=== PATIENT | female | born 1955 | race Caucasian/White ===

== ENCOUNTER → 2016-06-03 | Outpatient (CLI) | payer BC ==
[2016-06-03 09:23] LABS: Basophils % (A) 0 %; CH 31.2; CHCM 32.8; Eosinophils # (A) 0.2 k/uL (0-0.7); Eosinophils % (A) 2 %; HCT 50.4 % (34.0-46.0); HDW 2.11; HGB 16.2 gm/dL (11.4-16.0); Luc % (Auto) 3; Lymphocytes # (A) 2.4 k/uL (1.0-4.8); Lymphocytes % (A) 32 %; MCH 30.7 pg (25.0-35.0); MCHC 32.1 g/dL (31.0-37.0); MCV 95.7 fL (80.0-100.0); Mean Platelet Volume 8.3; Monocytes # (A) 0.4 k/uL (0-1.0); Monocytes % (A) 5 %; Neutrophils # (A) 4.4 k/uL (1.3-7.7); Neutrophils % (A) 58 %; RBC 5.27 m/uL (3.80-5.40); RDW 13.4 % (11.5-15.5); WBC 7.5 k/uL (3.8-10.6)
[2016-06-03 09:39] LABS: ALT 58 U/L (9-52); AST 35 U/L (14-36); Alkaline Phosphatase 93 U/L (38-126); Anion Gap 10 mmol/L; Blood Urea Nitrogen 13 mg/dL (7-17); Calcium 9.5 mg/dL (8.4-10.2); Carbon Dioxide 29 mmol/L (22-30); Chloride 105 mmol/L (98-107); Cholesterol 149 mg/dL (<200); Creatine Kinase 64 U/L (30-135); Glucose 91 mg/dL (74-99); HDL Cholesterol 53 mg/dL (40-60); Non-African American GFR(MDRD) >60 (>60 ml/min/1.73 sqM); Potassium 4.9 mmol/L (3.5-5.1); Sodium 144 mmol/L (137-145); Total Bilirubin 0.5 mg/dL (0.2-1.3); Total Protein 7.6 g/dL (6.3-8.2); Triglycerides 123 mg/dL (<150)
== END | disposition home or self-care (01) ==
LOC: LABWHC1 09:00
PROVIDERS: ATTEND Family Medicine
DX: E78.5 Hyperlipidemia, unspecified (principal)
CPT/HCPCS: 36415; 80053; 80061; 82550; 85025

== ENCOUNTER → 2016-08-16 | Outpatient (CLI) | payer BC ==
[2016-08-16 16:05] LABS: Appearance,Urine Clear (Clear); Bilirubin,Urine Negative (Negative); Glucose,Urine (UA) Negative (Negative); Ketones,Urine Negative (Negative); Leukocyte Esterase,Urine Negative (Negative); Nitrite,Urine Negative (Negative); PH, Urine 5.5 (5.0-8.0); Protein,Urine Negative (Negative); Specific Gravity,Urine 1.002 (1.001-1.035); UA Billing (MACRO vs. MICRO) CHEM; Urobilinogen,Urine <2.0 mg/dL (<2.0)
--- NOTE | 2016-08-16 19:14 | WWPN ---
DATE OF ADMISSION: 08/16/2016 CHIEF COMPLAINT: Vaginal pruritus which started about 2-1/2 weeks ago. HPI: This is a 60-year-old G2, P2 with an LMP of 1998. She is status post ELDON for uterine fibroids. She states she developed vaginal pruritus about 2-1/2 weeks ago. This seems to correspond with sexual activity after her used an erectile dysfunction medication for the first time. She states he was larger and firmer than in the past. She developed vaginal pruritus and possibly slight discharge. She used [id number] Monistat suppository about 2 weeks ago. She states she did have symptomatic improvement, but just a few days ago, she again developed some vaginal pruritus and slight odor. She has also noticed that when she urinates it feels like something is slightly blocking the opening. She denies urinary frequency. She has not used antibiotics recently. PAST MEDICAL HISTORY: Significant for Crohn's disease, elevated cholesterol, anxiety, and osteopenia. History of breast cancer, status post lumpectomy and radiation therapy in 2016. REVIEW OF SYSTEMS: She denies fever, respiratory, cardiac, or GI problems. She has had some low back discomfort recently, but feels achy. She has also had some tooth aching recently as well. PHYSICAL EXAM: Blood pressure 96/50. Height 5 feet inches. Weight 118 pounds. Temperature 98.0, pulse 73. This a well-developed, well-nourished white female who is alert and oriented x3 in no acute distress. ABDOMEN: Soft, nontender, without palpable masses. PELVIC EXAM: External genitalia reveals mild to moderate atrophy without lesions. Vagina reveals moderate atrophy without lesions. There is no unusual discharge noted. The vaginal tissue appears slightly inflamed generally consistent with atrophic vaginitis. No significant odor is noted. Bimanual exam is negative for mass or tenderness. There is no significant cystocele and no evidence of prolapse. There is no evidence of any palpable bladder masses. Saline and SOURAV wet gabriel were negative for trichomonas, hyphae and ( ) cells. IMPRESSION: 1. 60-year-old menopausal female, status post total abdominal hysterectomy for benign reasons. 2. Atrophic vaginitis. 3. Possible previous yeast infection that was self-treated with no evidence of Beata vaginitis at this time. 4. Slight urinary symptoms consisting of sensation that the urine is slightly blocked. 5. Vaginal symptoms may possibly be secondary to change in sexual activity after her started Cialis for erectile dysfunction. 6. History of breast cancer. PLAN: 1. We have discussed the situation and the findings. At this time I do not feel there is any need to further treat for yeast infection or bacterial vaginosis since there was no signs of this at this time. 2. UA and C&S has been obtained. 3. We have discussed atrophic vaginitis and possible treatments. Because of her history of recent breast cancer, I do not feel that she would be a good candidate for any estrogen products. At this I recommended vaginal moisturizer and to use lubrication with sexual activity which she has not used in the past. 4. She will return for her annual examination in the upcoming year. 5. She will follow up with Dr. Locke for her breast cancer and she states she has been doing mammograms through him. Total time spent with the patient 30 minutes.
== END | disposition home or self-care (01) ==
LOC: WWCWWP 12:31
PROVIDERS: ATTEND Obstetrics & Gynecology
DX: R30.0 Dysuria (principal)
CPT/HCPCS: 81003; 87086

== ENCOUNTER → 2016-08-17 | Outpatient (CLI) | payer BC ==
[2016-08-17 16:33] LABS: Basophils % (A) 0 %; CH 31.2; CHCM 32.7; Eosinophils # (A) 0.1 k/uL (0-0.7); Eosinophils % (A) 1 %; HCT 44.4 % (34.0-46.0); HDW 2.15; HGB 14.6 gm/dL (11.4-16.0); Luc # (Auto) 0.27; Luc % (Auto) 3; Lymphocytes # (A) 3.2 k/uL (1.0-4.8); Lymphocytes % (A) 38 %; MCH 31.6 pg (25.0-35.0); MCV 95.8 fL (80.0-100.0); Mean Platelet Volume 8.5; Monocytes # (A) 0.4 k/uL (0-1.0); Monocytes % (A) 5 %; Neutrophils # (A) 4.4 k/uL (1.3-7.7); Neutrophils % (A) 52 %; RBC 4.63 m/uL (3.80-5.40); RDW 13.5 % (11.5-15.5); WBC 8.5 k/uL (3.8-10.6); WBC (Perox) 8.73
[2016-08-17 16:40] LABS: ALT 44 U/L (9-52); AST 29 U/L (14-36); Alkaline Phosphatase 81 U/L (38-126); Anion Gap 8 mmol/L; Blood Urea Nitrogen 22 mg/dL (7-17); Calcium 9.3 mg/dL (8.4-10.2); Carbon Dioxide 26 mmol/L (22-30); Chloride 107 mmol/L (98-107); Glucose 107 mg/dL (74-99); Non-African American GFR(MDRD) >60 (>60 ml/min/1.73 sqM); Potassium 4.4 mmol/L (3.5-5.1); Sodium 141 mmol/L (137-145); Total Bilirubin 0.4 mg/dL (0.2-1.3); Total Protein 7.2 g/dL (6.3-8.2)
== END ==
LOC: LABWHC1 16:09
PROVIDERS: ATTEND Internal Medicine Gastroenterology
DX: M79.1 Myalgia (principal)
CPT/HCPCS: 36415; 80053; 85025

== ENCOUNTER → 2016-08-30 | Outpatient (CLI) | payer BC ==
--- NOTE | 2016-08-31 08:05 | MR ---
MR pelvis with and without contrast HISTORY: Pain in buttocks, myalgia Multiplanar multisequence and postcontrast images obtained through the pelvis following 10 cc MultiHa nce IV No comparisons Muscle signal is normal. There is no abnormal fluid collection present. Bone marrow signal is normal. Hip joints show a symmetric appearance. No significant arthropathy. No adenopathy. IMPRESSION: No significant abnormalities evident.
== END | disposition home or self-care (01) ==
LOC: RADMRIMAIN 17:09
PROVIDERS: ATTEND Internal Medicine Gastroenterology
DX: M79.1 Myalgia (principal)
CPT/HCPCS: 72197; A9577

== ENCOUNTER → 2016-09-29 | Outpatient (CLI) | payer BC ==
--- NOTE | 2016-09-29 11:42 | MM ---
Reason for exam: follow-up at short interval from prior study. Last mammogram was performed 6 months ago. History: Patient is postmenopausal, has history of breast cancer at age 60, and has history of high-risk lesion on a previous biopsy at age 59. Family history of breast cancer in mother at age 50. Malignant MG pre op needle loc LT of the left breast, September 22, 2015. High risk US biopsy breast VAD LT of the left breast, September 02, 2015. Radiation therapy of the left breast, 2016. Took estrogen for 1 year 1 month beginning at age 54. Physical Findings: Nurse did not find any significant physical abnormalities on exam. MG Diagnostic Mammo w CAD BARRETT Bilateral CC and MLO view(s) were taken. Prior study comparison: March 30, 2016, left breast MG diagnostic mammo LT w CAD. September 02, 2015, left breast MG diagnostic mammo LT wo CAD. The breast tissue is heterogeneously dense. This may lower the sensitivity of mammography. Finding: There are typically benign calcifications in both breasts. There is a chronic nodularity in the left breast. New finding since March 30, 2016 and September 02, 2015. These results were verbally communicated with the patient and result sheet given to the patient on 09/29/16. ASSESSMENT: Probably benign, BI-RAD 3 RECOMMENDATION: Follow-up diagnostic mammogram of the left breast in 6 months.
== END | disposition home or self-care (01) ==
LOC: RADMAMWWP 10:09
PROVIDERS: ATTEND Radiology Diagnostic Radiology
DX: C50.912 Malignant neoplasm of unspecified site of left female breast (principal)

== ENCOUNTER 2017-03-09 08:40 | Day surgery (SDC) | payer BC ==
[2017-03-07 09:02] VITALS: BMI 21.4
[~2017-03-09 08:40] MED LIST: LACTATED RINGERS 1,000 ML IV SCH; LIDOCAINE 1% 20 ML VIAL (10MG/ML) FOR IV START INTRADERMA PRN
[2017-03-09 09:11] VITALS: RESP 16; TEMP 97.8
[2017-03-09] MEDS ORDERED: LIDOCAINE 1% 20 ML VIAL (10MG/ML) FOR IV START INTRADERMA ONE (09:12)
[2017-03-09] MEDS ORDERED: PROPOFOL 10 MG/ML 20 ML VIAL IV ONE (09:22)
--- NOTE | 2017-03-09 09:41 | P.PCN ---
Date of Procedure: 03/09/17 Procedure(s) Performed: BRIEF HISTORY: Patient is a 61-year-old pleasant white female, scheduled for an elective colonoscopy as a part of screening for long standing history of Crohn' s ileocolitis. She was diagnosed with Crohn's disease in 1989 and since 2008 has been maintained on Humira every 2 weeks. Her last colonoscopy was in December 2013 which was normal. PROCEDURE PERFORMED: Colonoscopy with Biopsy PREOPERATIVE DIAGNOSIS: long-standing history of Crohn's colitis diagnosed in 1989. IV sedation per Anesthesia. PROCEDURE: After informed consent was obtained, the patient, was brought into the endoscopy unit. IV sedation was administered by Anesthesia under continuous monitoring. Digital rectal examination was normal. Initially the Olympus CF- 160 flexible video colonoscope was then inserted in the rectum, gradually advanced into the cecum without any difficulty. Careful examination was performed as the scope was gradually being withdrawn. Ileocecal valve and the appendiceal orifice were visualized and appeared normal. Prep was excellent.terminal ileum was intermittent and 20 cm visualized and appeared normal. The ileocecal valve appeared deformed. Mucosa of the cecum, ascending colon, transverse colon, descending colon, sigmoid colon, and rectum appeared normal. Retroflexion was performed in the rectum and no lesions were seen.random biopsies were done at every 10 cm intervals from the cecum to the rectum to evaluate for dysplasia. The patient tolerated the procedure well. IMPRESSION: Normal-appearing colon from rectum to cecum with no evidence of active colitis or colorectal neoplasia.. RECOMMENDATIONS: Findings of this examination were discussed with the patient as well as a family. She was advised to follow with the biopsy results. She can have a repeat surveillance colonoscopy in 2-3 years.
[2017-03-09 10:03] VITALS: PULSE 67
[2017-03-09 10:29] VITALS: BP 110/71
== END 2017-03-09 10:35 | disposition home or self-care (01) ==
LOC: ORWHC2ENDO 08:40
PROVIDERS: ATTEND Internal Medicine Gastroenterology
DX: K50.80 Crohn's disease of both small and large intestine without complications (principal); K21.9 Gastro-esophageal reflux disease without esophagitis; E78.5 Hyperlipidemia, unspecified; Z86.73 Personal history of transient ischemic attack (TIA), and cerebral infarction without residual deficits; Z79.82 Long term (current) use of aspirin; Z79.899 Other long term (current) drug therapy; Z88.0 Allergy status to penicillin
CPT/HCPCS: 88305; 45380; J2704

== ENCOUNTER → 2017-05-03 | Outpatient (CLI) | payer BC ==
[2017-05-03 13:25] LABS: Basophils % (A) 0 %; Eosinophils # (A) 0.1 k/uL (0-0.7); Eosinophils % (A) 0 %; Lymphocytes % (A) 14 %; MCH 31.6 pg (25.0-35.0); MCHC 32.3 g/dL (31.0-37.0); MCV 97.7 fL (80.0-100.0); Mean Platelet Volume 7.7; Monocytes # (A) 0.5 k/uL (0-1.0); Monocytes % (A) 3 %; Neutrophils # (A) 11.9 k/uL (1.3-7.7); Neutrophils % (A) 82 %; Platelet Count 329 k/uL (150-450); RBC 5.22 m/uL (3.80-5.40); RDW 13.6 % (11.5-15.5); WBC 14.5 k/uL (3.8-10.6)
[2017-05-03 13:28] LABS: HGB 16.5 gm/dL (11.4-16.0)
[2017-05-03 13:32] LABS: Amylase 81 U/L (30-110); Lipase 100 U/L (23-300)
[2017-05-03 13:58] LABS: Troponin I <0.012 ng/mL (0.000-0.034)
[2017-05-03 14:05] LABS: Creatine Kinase MB 2.8 ng/mL (0.0-2.4)
== END | disposition home or self-care (01) ==
LOC: LABWHC1 12:49
PROVIDERS: ATTEND Nurse Practitioner Adult Health
DX: R07.9 Chest pain, unspecified (principal); K21.9 Gastro-esophageal reflux disease without esophagitis; R10.9 Unspecified abdominal pain
CPT/HCPCS: 36415; 82150; 82553; 83690; 84484; 85025; 85379; 86677

== ENCOUNTER → 2017-05-08 | Outpatient (CLI) | payer BC ==
--- NOTE | 2017-05-09 07:52 | ECHOF ---
Referral Reason:R07.9 Chest pain MEASUREMENTS -------- HEIGHT: 152.4 cm WEIGHT: 49.9 kg BP: RVIDd: 2.0 cm (< 3.3) IVSd: 0.9 cm (0.6 - 1.1) LVIDd: 3.8 cm (3.9 - 5.3) LVPWd: 1.2 cm (0.6 - 1.1) IVSs: 1.2 cm LVIDs: 2.5 cm LVPWs: 1.3 cm LAESV Index (A-L): 21.84 ml/m Ao Diam: 2.5 cm (2.0 - 3.7) AV Cusp: 1.5 cm (1.5 - 2.6) LA Diam: 2.3 cm (2.7 - 3.8) MV EXCURSION: 13.275 mm (> 18.000) MV EF SLOPE: 94 mm/s (70 - 150) EPSS: 0.7 cm MV E Lisandro: 0.74 m/s MV DecT: 296 ms MV A Lisandro: 0.65 m/s MV E/A Ratio: 1.13 FINDINGS -------- Sinus rhythm. This was a technically good study. The left ventricular size is normal. Left ventricular wall thickness is normal. Overall left vent ricular systolic function is normal with, an EF between 60 - 65 %. The right ventricle is normal in size and function. Normal LA size by volume 22+/-6 ml/m2. The right atrium is normal in size. The aortic valve is trileaflet, and appears structurally normal. No aortic stenosis or regurgitation. The mitral valve leaflets are mildly thickened. There is trace mitral regurgitation. Trace tricuspid regurgitation present. Right ventricular systolic pressure is normal at < 35 mmHg. There is no evidence of pulmonary hypertension. The pulmonic valve was not well visualized. The aortic root size is normal. Normal inferior vena cava with normal inspiratory collapse consistent with estimated right atrial pre ssure of 5 mmHg. The pericardium is normal. There is no pericardial effusion. CONCLUSIONS -------- 1. Sinus rhythm. 2. This was a technically good study. 3. The left ventricular size is normal. 4. Left ventricular wall thickness is normal. 5. Overall left ventricular systolic function is normal with, an EF between 60 - 65 %. 6. Normal LA size by volume 22+/-6 ml/m2. 7. The aortic valve is trileaflet, and appears structurally normal. No aortic stenosis or regurgitati on. 8. The mitral valve leaflets are mildly thickened. 9. There is trace mitral regurgitation. 10. Trace tricuspid regurgitation present. 11. Right ventricular systolic pressure is normal at < 35 mmHg. 12. There is no evidence of pulmonary hypertension. 13. The pulmonic valve was not well visualized. 14. The aortic root size is normal. 15. There is no pericardial effusion. CELL REPAIRER: Homero Valencia RDCS
== END | disposition home or self-care (01) ==
LOC: RADECHMAIN 15:43
PROVIDERS: ATTEND Family Medicine
DX: I05.8 Other rheumatic mitral valve diseases (principal); R07.9 Chest pain, unspecified
CPT/HCPCS: 93306

== ENCOUNTER → 2017-06-25 | Outpatient (CLI) | payer BC ==
[2017-06-25 08:21] LABS: Basophils % (A) 0 %; Eosinophils # (A) 0.2 k/uL (0-0.7); Eosinophils % (A) 2 %; HCT 48.6 % (34.0-46.0); HGB 15.5 gm/dL (11.4-16.0); Lymphocytes # (A) 2.8 k/uL (1.0-4.8); Lymphocytes % (A) 33 %; MCH 30.3 pg (25.0-35.0); MCHC 31.9 g/dL (31.0-37.0); MCV 95.1 fL (80.0-100.0); Monocytes # (A) 0.4 k/uL (0-1.0); Monocytes % (A) 5 %; Neutrophils # (A) 4.7 k/uL (1.3-7.7); Neutrophils % (A) 57 %; Platelet Count 268 k/uL (150-450); RBC 5.11 m/uL (3.80-5.40); RDW 12.9 % (11.5-15.5); WBC 8.3 k/uL (3.8-10.6)
[2017-06-25 08:41] LABS: ALT 26 U/L (9-52); AST 28 U/L (14-36); Alkaline Phosphatase 81 U/L (38-126); Anion Gap 11 mmol/L; Blood Urea Nitrogen 15 mg/dL (7-17); Calcium 9.7 mg/dL (8.4-10.2); Carbon Dioxide 26 mmol/L (22-30); Chloride 104 mmol/L (98-107); Glucose 96 mg/dL (74-99); Potassium 4.6 mmol/L (3.5-5.1); Sodium 141 mmol/L (137-145); Total Bilirubin 0.4 mg/dL (0.2-1.3); Total Protein 6.9 g/dL (6.3-8.2)
== END | disposition home or self-care (01) ==
LOC: LABWHC1 07:54
PROVIDERS: ATTEND Internal Medicine Gastroenterology
DX: K50.00 Crohn's disease of small intestine without complications (principal)
CPT/HCPCS: 36415; 80053; 85025

== ENCOUNTER → 2017-10-23 | Day surgery (SDC) | payer BC ==
[~2017-10-23] MED LIST changes: +GLUCAGON 1 MG/ML VIAL IM STA; -LACTATED RINGERS 1,000 ML IV SCH; -LIDOCAINE 1% 20 ML VIAL (10MG/ML) FOR IV START INTRADERMA PRN
[2017-10-23 08:40] LABS: Basophils % (A) 0 %; Eosinophils # (A) 0.1 k/uL (0-0.7); Eosinophils % (A) 1 %; HCT 48.2 % (34.0-46.0); Lymphocytes # (A) 1.9 k/uL (1.0-4.8); Lymphocytes % (A) 15 %; MCH 31.6 pg (25.0-35.0); MCHC 33.2 g/dL (31.0-37.0); MCV 95.2 fL (80.0-100.0); Mean Platelet Volume 7.2; Monocytes # (A) 0.5 k/uL (0-1.0); Monocytes % (A) 4 %; Neutrophils % (A) 79 %; Platelet Count 261 k/uL (150-450); RBC 5.06 m/uL (3.80-5.40); RDW 14.3 % (11.5-15.5); WBC 12.7 k/uL (3.8-10.6)
[2017-10-23 08:44] VITALS: BP 130/80; PULSE 69; RESP 16; TEMP 97.6
[2017-10-23 08:51] LABS: ALT 28 U/L (9-52); AST 24 U/L (14-36); Alkaline Phosphatase 63 U/L (38-126); Anion Gap 8 mmol/L; Blood Urea Nitrogen 18 mg/dL (7-17); Calcium 9.3 mg/dL (8.4-10.2); Carbon Dioxide 27 mmol/L (22-30); Chloride 105 mmol/L (98-107); Glucose 99 mg/dL (74-99); Potassium 4.8 mmol/L (3.5-5.1); Sodium 140 mmol/L (137-145); Total Bilirubin 0.5 mg/dL (0.2-1.3); Total Protein 6.7 g/dL (6.3-8.2)
[2017-10-23 09:04] LABS: C Reactive Protein 5.4 mg/L (<10.0)
[2017-10-23 10:42] LABS: Erythrocyte Sedimentation Rate 6 mm/hr (0-20)
--- NOTE | 2017-10-26 08:16 | MR ---
EXAMINATION TYPE: MR Enterography DATE OF EXAM: 10/23/2017 COMPARISON: 03/16/2017 CT abdomen pelvis HISTORY: Crohn's disease of small intestine. Abdominal pain. CONTRAST: Standard multiplanar, multisequence imaging of the abdomen is performed without and with IV contrast, patient is injected with 5.5 mL intravenous Gadavist gadolinium contrast. Oral Volumen and Water was given as per enterography protocol. FINDINGS: BOWEL: There is narrowing and stricturing at the terminal ileum that is nonobstructive as there is no proximal dilatation and stool is noted throughout the entirety of the colon. There is surrounding in flammatory change, mucosal hyperemia and mild enhancement such as on postcontrast coronal image 82 an d 83 of series 901 as marked on the images. There is slight mucosal enhancement of the distal ileum a nd a long segment measuring approximately 5 cm relating to the terminal ileum. There is increased sig nal on DWI correspondingly in this region although 80 cc map was not obtained to determine restricted diffusion. This region does demonstrate some fibrosis as there is mesenteric tethering on T1 on axia l nonfat sat image 12. There are no other areas of significant small bowel enhancement to indicate active inflammatory regio ns or skip lesions. A portion of the distal jejunum is slightly hyperemic on hyperintense and T1 prec ontrast imaging likely secondary to incomplete distention and opposing bowel powell. There is some muc osal enhancement of the distal sigmoid colon such as on T1 fat-sat postcontrast image 21 and coronal image 235/236. This measures approximately 6 cm in length and extends towards the rectum. No rectocut aneous fistula is seen. No fistulization within the abdomen or pelvis are noted. No intra-abdominal f luid collection is seen. LUNG BASES: Unremarkable LIVER/GALLBLADDER: The entirety of the liver is not visualized given technique. The previously seen q uestion area of focal fatty infiltration is not well visualized on today's examination. Visualized po rtions demonstrate no abnormal enhancement. Gallbladder surgically absent. Minimal intrahepatic bilia ry ductal prominence without brandon dilatation is noted. ADRENALS: No significant abnormality is seen. No thickening. KIDNEYS: The kidneys enhance and excrete symmetrically. No hydronephrosis. PANCREAS: No significant abnormality is seen. No ductal dilatation. SPLEEN: No significant abnormality is seen. No splenomegaly. UTERUS/ADNEXA: Uterus appears surgically absent. Probable left ovarian cyst/follicle is T2 hyperinten se measuring 1.8 cm this is T1 hypointense without internal enhancement. LYMPH NODES: No greater than 1cm abdominal or pelvic lymph nodes are appreciated. IMPRESSION: 1. Incomplete short segment stricture at the terminal ileum with mucosal hyperemia and surrounding mi ld and acute inflammatory change extending over approximately 5 cm in length. No perienteric focal fl uid collection to suggest abscess. No fistula formation. 2. Mild mucosal enhancement indicating an acute inflammatory change of the rectosigmoid junction parker uring approximately 6 cm in length without surrounding fluid collection or rectocutaneous fistula. 3. Nonenhancing probable small left ovarian cyst/follicle. If there is further clinical concern pelvi c ultrasound could be performed.
== END ==
LOC: RADMRIMAIN 08:11
PROVIDERS: ATTEND Internal Medicine Gastroenterology
DX: K56.690 Other partial intestinal obstruction (principal); K50.00 Crohn's disease of small intestine without complications
CPT/HCPCS: 80053; 85652; 85025; 86140; 96372; 72197; 74183; J1610; A9581

== ENCOUNTER → 2017-11-15 | Outpatient (CLI) | payer BC ==
--- NOTE | 2017-11-15 09:06 | MM ---
Reason for exam: additional evaluation requested from prior study. Last mammogram was performed 7 months ago. History: Patient is postmenopausal, has history of breast cancer at age 60, and has history of high-risk lesion on a previous biopsy at age 59. Family history of breast cancer in mother at age 58. Malignant MG pre op needle loc LT of the left breast, September 22, 2015. High risk US biopsy breast VAD LT of the left breast, September 02, 2015. Radiation therapy of the left breast, 2016. Took estrogen for 1 year 1 month beginning at age 54. Physical Findings: Nurse did not find any significant physical abnormalities on exam. MG Diagnostic Mammo w CAD BARRETT Bilateral CC and MLO view(s) were taken. Prior study comparison: April 02, 2017, left breast MG diagnostic mammo LT w CAD. September 29, 2016, bilateral MG diagnostic mammo w CAD BARRETT. The breast tissue is heterogeneously dense. This may lower the sensitivity of mammography. No suspicious calcifications. Subtle post operative changes in the left breast. No significant new findings when compared with previous films. These results were verbally communicated with the patient and result sheet given to the patient on 11/15/17. ASSESSMENT: Benign, BI-RAD 2 RECOMMENDATION: Follow-up diagnostic mammogram of both breasts in 1 year.
== END | disposition home or self-care (01) ==
LOC: RADMAMWWP 08:05
PROVIDERS: ATTEND Family Medicine
DX: R92.8 Other abnormal and inconclusive findings on diagnostic imaging of breast (principal)
CPT/HCPCS: 77066

== ENCOUNTER → 2018-04-25 | Outpatient (CLI) | payer BC ==
[2018-04-25 07:22] LABS: Basophils % (A) 0 %; Eosinophils # (A) 0.2 k/uL (0-0.7); Eosinophils % (A) 2 %; HGB 15.8 gm/dL (11.4-16.0); Lymphocytes # (A) 4.5 k/uL (1.0-4.8); Lymphocytes % (A) 41 %; MCH 30.6 pg (25.0-35.0); MCHC 32.3 g/dL (31.0-37.0); Mean Platelet Volume 7.3; Monocytes # (A) 0.6 k/uL (0-1.0); Monocytes % (A) 5 %; Neutrophils # (A) 5.4 k/uL (1.3-7.7); Neutrophils % (A) 49 %; Platelet Count 339 k/uL (150-450); RBC 5.16 m/uL (3.80-5.40); RDW 13.7 % (11.5-15.5)
[2018-04-25 08:52] LABS: Erythrocyte Sedimentation Rate 8 mm/hr (0-20)
[2018-04-25 13:12] LABS: ALT 23 U/L (8-44); AST 23 U/L (13-35); Albumin/Globulin Ratio 1.95 (1.20-2.10); Alkaline Phosphatase 86 U/L (41-126); C Reactive Protein <0.4 mg/dL (0.0-0.8); Calcium 9.2 mg/dL (8.7-10.3); Carbon Dioxide 28.1 mmol/L (21.6-31.8); Chloride 106 mmol/L (96-109); Cholesterol 152 mg/dL (0-200); Globulin 2.1 g/dL (1.6-3.3); Glucose 85 mg/dL (70-110); LDL Cholesterol,Calculated 67.2 mg/dL (0.0-131.0); Potassium 4.5 mmol/L (3.5-5.5); Sodium 142 mmol/L (135-145); Total Bilirubin 0.4 mg/dL (0.3-1.2); Total Protein 6.2 g/dL (6.2-8.2)
[2018-04-25 14:52] LABS: Hemoglobin A1C 5.8 % (4.0-6.0)
== END ==
LOC: LABWHC1 07:04
PROVIDERS: ATTEND Internal Medicine Gastroenterology
DX: Z00.00 Encounter for general adult medical examination without abnormal findings (principal); K50.00 Crohn's disease of small intestine without complications; E78.5 Hyperlipidemia, unspecified
CPT/HCPCS: 36415; 80053; 80061; 83036; 84443; 85025; 85652; 86140

== ENCOUNTER → 2018-11-04 | Outpatient (CLI) | payer BC ==
[2018-11-04 17:00] LABS: Basophils % (A) 0 %; Eosinophils # (A) 0.2 k/uL (0-0.7); Eosinophils % (A) 2 %; HCT 47.4 % (34.0-46.0); Lymphocytes # (A) 3.6 k/uL (1.0-4.8); Lymphocytes % (A) 39 %; MCH 30.1 pg (25.0-35.0); MCHC 31.7 g/dL (31.0-37.0); Mean Platelet Volume 7.9; Monocytes # (A) 0.5 k/uL (0-1.0); Monocytes % (A) 5 %; Neutrophils # (A) 4.6 k/uL (1.3-7.7); Neutrophils % (A) 50 %; Platelet Count 279 k/uL (150-450); RBC 4.99 m/uL (3.80-5.40); RDW 13.5 % (11.5-15.5); WBC 9.1 k/uL (3.8-10.6)
[2018-11-04 17:53] LABS: Erythrocyte Sedimentation Rate 9 mm/hr (0-20)
[2018-11-05 01:32] LABS: Albumin 4.2 g/dL (3.80-4.90); Albumin/Globulin Ratio 1.83 (1.60-3.17); Anion Gap 7.6 mmol/L (4.00-12.00); BUN/Creat Ratio 23.33 Ratio (12.00-20.00); C Reactive Protein 0.4 mg/dL (0.0-0.8); Calcium 9.2 mg/dL (8.7-10.3); Carbon Dioxide 26.4 mmol/L (21.6-31.8); Globulin 2.3 g/dL (1.6-3.3); Potassium 4.8 mmol/L (3.5-5.5); Total Bilirubin 0.3 mg/dL (0.3-1.2); Total Protein 6.5 g/dL (6.2-8.2)
== END | disposition home or self-care (01) ==
LOC: LABWHC1 15:55
PROVIDERS: ATTEND Internal Medicine Gastroenterology
DX: K50.00 Crohn's disease of small intestine without complications (principal)
CPT/HCPCS: 36415; 80053; 85025; 85652; 86140

== ENCOUNTER → 2019-01-24 | Outpatient (CLI) | payer BC ==
--- NOTE | 2019-01-28 13:14 | MM ---
Reason for exam: additional evaluation requested from prior study. Last mammogram was performed 1 year and 2 months ago. History: Patient is postmenopausal, has history of breast cancer at age 60, and has history of high-risk lesion on a previous biopsy at age 59. Family history of breast cancer in mother at age 58. Malignant MG pre op needle loc LT of the left breast, September 22, 2015. High risk US biopsy breast VAD LT of the left breast, September 02, 2015. Radiation therapy of the left breast, 2016. Took estrogen for 1 year 1 month beginning at age 54. Physical Findings: Nurse did not find any significant physical abnormalities on exam. MG Diagnostic Mammo w CAD BARRETT Bilateral CC, MLO, and XCCL view(s) were taken. Prior study comparison: November 15, 2017, bilateral MG diagnostic mammo w CAD BARRETT. April 02, 2017, left breast MG diagnostic mammo LT w CAD. The breast tissue is heterogeneously dense. This may lower the sensitivity of mammography. No suspicious abnormality. Post surgical change on the left. Right focal asymmetry of the upper outer quadrant is similar to prior exams. These results were verbally communicated with the patient and result sheet given to the patient on 01/24/19. ASSESSMENT: Benign, BI-RAD 2 RECOMMENDATION: Follow-up diagnostic mammogram of both breasts in 1 year.
== END | disposition home or self-care (01) ==
LOC: RADMAMWWP 14:21
PROVIDERS: ATTEND Family Medicine
DX: R92.8 Other abnormal and inconclusive findings on diagnostic imaging of breast (principal)
CPT/HCPCS: 77066

== ENCOUNTER → 2020-02-20 | Outpatient (CLI) | payer BC ==
--- NOTE | 2020-02-25 13:13 | P.ARTDOP ---
Arterial Doppler LOWER EXTREMITY ARTERIAL DOPPLER: DATE OF SERVICE: 02/20/2020 Reason for study: Bilateral foot discoloration, possible Raynaud's. Doppler waveforms: Multiphasic bilaterally throughout. Pulse volume recording: []. Pressure gradients: None. Ankle-brachial indices: Greater than 1 bilaterally. Toe brachial indices: [] on the right, [] on the left Impression: Normal study.
== END | disposition home or self-care (01) ==
LOC: RADUSWWP 13:09
PROVIDERS: ATTEND Family Medicine
DX: I73.00 Raynaud's syndrome without gangrene (principal)
CPT/HCPCS: 93922

== ENCOUNTER → 2020-05-07 | Outpatient (CLI) | payer BC ==
--- NOTE | 2020-05-07 13:25 | MM ---
Reason for exam: additional evaluation requested from prior study. Last mammogram was performed 1 year and 3 months ago. History: Patient is postmenopausal, has history of breast cancer at age 60, and has history of high-risk lesion on a previous biopsy at age 59. Family history of breast cancer in mother at age 58. Malignant MG pre op needle loc LT of the left breast, September 22, 2015. High risk US biopsy breast VAD LT of the left breast, September 02, 2015. Radiation therapy of the left breast, 2016. Took estrogen for 1 year 1 month beginning at age 54. Physical Findings: Nurse did not find any significant physical abnormalities on exam. MG 3D Diag Mammo W/Cad BARRETT Bilateral CC and MLO view(s) were taken. Prior study comparison: January 24, 2019, bilateral MG diagnostic mammo w CAD BARRETT. November 15, 2017, bilateral MG diagnostic mammo w CAD BARRETT. The breast tissue is heterogeneously dense. This may lower the sensitivity of mammography. Post surgical smaller left breast. There is chronic nodularity in the left breast. Posterior upper outer quadrant asymmetric density. The area becomes less defined on additional views. Ultrasound recommended. These results were verbally communicated with the patient and result sheet given to the patient on 05/07/20. ASSESSMENT: Incomplete: need additional imaging evaluation, BI-RAD 0 RECOMMENDATION: Ultrasound of the right breast. (upper outer quadrant)
--- NOTE | 2020-05-07 13:26 | USB ---
Reason for exam: additional evaluation requested from abnormal screening. History: Patient is postmenopausal, has history of breast cancer at age 60, and has history of high-risk lesion on a previous biopsy at age 59. Family history of breast cancer in mother at age 58. Malignant MG pre op needle loc LT of the left breast, September 22, 2015. High risk US biopsy breast VAD LT of the left breast, September 02, 2015. Radiation therapy of the left breast, 2016. Took estrogen for 1 year 1 month beginning at age 54. US Breast Limited RT Right limited breast ultrasound including focal area of concern, retroareolar and axilla demonstrates no cystic or solid lesion seen. Scanned 9-12 o'clock. These results were verbally communicated with the patient and result sheet given to the patient on 05/07/20. ASSESSMENT: Probably benign, BI-RAD 3 RECOMMENDATION: Follow-up diagnostic mammogram of the right breast in 6 months.
== END | disposition home or self-care (01) ==
LOC: RADMAMWWP 11:35
PROVIDERS: ATTEND Family Medicine
DX: R92.8 Other abnormal and inconclusive findings on diagnostic imaging of breast (principal)
CPT/HCPCS: 77062; 77066

== ENCOUNTER → 2020-05-21 | Outpatient (CLI) | payer BC | END | disposition home or self-care (01) | LOC: LABWHC1 15:23 | PROVIDERS: ATTEND Internal Medicine Gastroenterology | DX: K50.00 Crohn's disease of small intestine without complications (principal) | CPT/HCPCS: 36415; 86480 ==

== ENCOUNTER → 2020-09-28 | Outpatient (CLI) | payer BC ==
[2020-09-28 16:02] LABS: Basophils # (A) 0.02 X 10*3/uL (0.00-0.10); Basophils % (A) 0.2 %; Eosinophils # (A) 0.18 X 10*3/uL (0.04-0.35); Eosinophils % (A) 1.9 %; HCT 47.5 % (37.2-46.3); HGB 15.8 g/dL (12.0-15.0); Lymphocytes # (A) 3.45 X 10*3/uL (0.90-5.00); Lymphocytes % (A) 36.3 %; MCHC 33.3 g/dL (32.0-37.0); MCV 96.3 fL (80.0-97.0); Monocytes # (A) 0.78 X 10*3/uL (0.20-1.00); Monocytes % (A) 8.2 %; Neutrophils # (A) 5.06 X 10*3/uL (1.80-7.70); Neutrophils % (A) 53.2 %; Platelet Count 236 X 10*3/uL (140-440); RBC 4.93 X 10*6/uL (4.10-5.20); RDW 13.7 % (11.5-14.5); WBC 9.51 X 10*3/uL (4.50-10.00)
[2020-09-28 20:33] LABS: ALT 21 U/L (8-44); AST 27 U/L (13-35); African American GFR (CKD) 90.9 (60.0-200.0); Albumin/Globulin Ratio 1.63 (1.60-3.17); Alkaline Phosphatase 88 U/L (41-126); BUN/Creat Ratio 18.75 Ratio (12.00-20.00); C Reactive Protein <0.4 mg/dL (0.0-0.8); Calcium 9.4 mg/dL (8.7-10.3); Carbon Dioxide 23.7 mmol/L (21.6-31.8); Chloride 110 mmol/L (96-109); Globulin 2.7 g/dL (1.6-3.3); Glucose 99 mg/dL (70-110); Non-African American GFR(CKD) 78.5 (60.0-200.0); Potassium 4.8 mmol/L (3.5-5.5); Sodium 143 mmol/L (135-145); Total Bilirubin 0.3 mg/dL (0.3-1.2); Total Protein 7.1 g/dL (6.2-8.2)
[2020-09-28 21:26] LABS: Erythrocyte Sedimentation Rate 8 mm/Hr (0-30)
== END | disposition home or self-care (01) ==
LOC: LABWHC1 10:02
PROVIDERS: ATTEND Internal Medicine Gastroenterology
DX: K50.00 Crohn's disease of small intestine without complications (principal)
CPT/HCPCS: 36415; 80053; 85025; 85652; 86140

== ENCOUNTER → 2020-11-09 | Outpatient (CLI) | payer BC ==
--- NOTE | 2020-11-09 07:47 | MM ---
Reason for exam: additional evaluation requested from prior study. Last mammogram was performed 6 months ago. History: Patient is postmenopausal, has history of breast cancer at age 60, and has history of high-risk lesion on a previous biopsy at age 59. Family history of breast cancer in mother at age 58. Malignant MG pre op needle loc LT of the left breast, September 22, 2015. High risk US biopsy breast VAD LT of the left breast, September 02, 2015. Radiation therapy of the left breast, 2016. Took estrogen for 1 year 1 month beginning at age 54. Physical Findings: Nurse did not find any significant physical abnormalities on exam. MG 3D Diag Mammo W/Cad RT CC and MLO view(s) were taken of the right breast. Prior study comparison: May 07, 2020, bilateral MG 3d diag mammo w/cad BARRETT. January 24, 2019, bilateral MG diagnostic mammo w CAD BARRETT. November 15, 2017, bilateral MG diagnostic mammo w CAD BARRETT. There are scattered fibroglandular densities. There is a right upper outer quadrant mass that is unchanged since 2018. These results were verbally communicated with the patient and result sheet given to the patient on 11/09/20. ASSESSMENT: Benign, BI-RAD 2 RECOMMENDATION: Routine screening mammogram of both breasts in 6 months. Back on schedule for April 2020.
== END | disposition home or self-care (01) ==
LOC: RADMAMWWP 07:01
PROVIDERS: ATTEND Family Medicine
DX: N63.11 Unspecified lump in the right breast, upper outer quadrant (principal); Z78.0 Asymptomatic menopausal state; Z85.3 Personal history of malignant neoplasm of breast; Z80.3 Family history of malignant neoplasm of breast
CPT/HCPCS: 77061; 77065

== ENCOUNTER → 2021-04-01 | Outpatient (CLI) | payer BC ==
[2021-04-01 18:31] LABS: Basophils # (A) 0.02 X 10*3/uL (0.00-0.10); Basophils % (A) 0.2 %; Eosinophils # (A) 0.18 X 10*3/uL (0.04-0.35); Eosinophils % (A) 1.9 %; HCT 50.4 % (37.2-46.3); HGB 15.8 g/dL (12.0-15.0); Lymphocytes # (A) 4.22 X 10*3/uL (0.90-5.00); MCH 30.7 pg (27.0-32.0); MCHC 31.3 g/dL (32.0-37.0); MCV 98.1 fL (80.0-97.0); Mean Platelet Volume 10.9 fL (9.5-12.2); Monocytes # (A) 0.54 X 10*3/uL (0.20-1.00); Monocytes % (A) 5.8 %; Neutrophils # (A) 4.39 X 10*3/uL (1.80-7.70); Neutrophils % (A) 46.9 %; Platelet Count 303 X 10*3/uL (140-440); RBC 5.14 X 10*6/uL (4.10-5.20); RDW 13.1 % (11.5-14.5); WBC 9.37 X 10*3/uL (4.50-10.00)
[2021-04-01 23:59] LABS: African American GFR (CKD) 69.4 (60.0-200.0); Albumin 4.2 g/dL (3.8-4.9); Albumin/Globulin Ratio 1.45 (1.60-3.17); Anion Gap 20.2 mmol/L (10.00-18.00); BUN/Creat Ratio 13.8 Ratio (12.00-20.00); Blood Urea Nitrogen 13.8 mg/dL (9.0-27.0); Calcium 9.5 mg/dL (8.7-10.3); Carbon Dioxide 17.8 mmol/L (20.0-27.5); Globulin 2.9 g/dL (1.6-3.3); Non-African American GFR(CKD) 59.9 (60.0-200.0); Potassium 4.5 mmol/L (3.5-5.5); Total Bilirubin 0.3 mg/dL (0.30-1.20); Total Protein 7.1 g/dL (6.2-8.2)
== END | disposition home or self-care (01) ==
LOC: LABWHC1 10:46
PROVIDERS: ATTEND Internal Medicine Gastroenterology
DX: K50.00 Crohn's disease of small intestine without complications (principal)
CPT/HCPCS: 36415; 80053; 85025

== ENCOUNTER 2021-04-06 10:20 | Day surgery (SDC) | payer BC ==
[2021-04-05 08:33] VITALS: BMI 24.4
[~2021-04-06 10:20] MED LIST changes: -GLUCAGON 1 MG/ML VIAL IM STA; +LACTATED RINGERS 1,000 ML IV SCH; +LIDOCAINE 1% (10MG/ML) FOR IV START INTRADERMA PRN
[2021-04-06 10:50] VITALS: TEMP 97
[2021-04-06 11:05] LABS: Glucose,Whole Blood 83 mg/dL (75-99)
[2021-04-06] MEDS ORDERED: PROPOFOL 10 MG/ML 20 ML VIAL IV ONE (11:13)
--- NOTE | 2021-04-06 11:33 | P.PCN ---
Date of Procedure: 04/06/21 Procedure(s) Performed: BRIEF HISTORY: Patient is a 65-year-old pleasant white female scheduled for an elective colonoscopy as a part of the lungs any history of Crohn's ileocolitis and perianal Crohn's disease diagnosed in 1992. She is presently maintained on Humira every injections every 2 weeks and in clinical remission. Her last colonoscopy was 5 years ago. PROCEDURE PERFORMED: Colonoscopy. PREOPERATIVE DIAGNOSIS: Long-standing history of Crohn's ileocolitis and perianal Crohn's disease. IV sedation per Anesthesia. PROCEDURE: After informed consent was obtained, the patient, was brought into the endoscopy unit. IV sedation was administered by Anesthesia under continuous monitoring. Digital rectal examination was normal. Initially the Olympus CF-160 flexible video colonoscope was then inserted in the rectum, gradually advanced into the cecum without any difficulty. Careful examination was performed as the scope was gradually being withdrawn. Ileocecal valve and the appendiceal orifice were visualized and appeared normal. Prep was excellent. Terminal ileum was intubated and 20 cm visualized and appeared normal. Mucosa of the cecum, ascending colon, transverse colon, descending colon, sigmoid colon, and rectum appeared normal. At her sigmoid diverticulosis. Retroflexion was performed in the rectum and no lesions were seen. The patient tolerated the procedure well. IMPRESSION: Normal-appearing colon from rectum to cecum with no evidence of colitis or colorectal neoplasia. Moderate sigmoid diverticulosis Normal appearing terminal ileum. RECOMMENDATIONS: Findings of this examination were discussed with the patient as well as a family. She was advised to have a repeat colonoscopy in 2-3 years..
[2021-04-06 11:46] VITALS: RESP 20
[2021-04-06 11:53] VITALS: BP 111/76; PULSE 76
== END 2021-04-06 12:10 | disposition home or self-care (01) ==
LOC: ORWHC2ENDO 10:20
PROVIDERS: ATTEND Internal Medicine Gastroenterology
DX: K50.80 Crohn's disease of both small and large intestine without complications (principal)
CPT/HCPCS: 45378; J2704

== ENCOUNTER → 2021-08-27 | Outpatient (CLI) | payer BC ==
[2021-08-27 16:15] LABS: Basophils # (A) 0.03 X 10*3/uL (0.00-0.10); Basophils % (A) 0.3 %; Eosinophils # (A) 0.14 X 10*3/uL (0.04-0.35); Eosinophils % (A) 1.6 %; HCT 45.8 % (37.2-46.3); HGB 14.6 g/dL (12.0-15.0); Immature Grans, Automated 0.1 %; Lymphocytes # (A) 3.35 X 10*3/uL (0.90-5.00); Lymphocytes % (A) 38.6 %; MCH 31.2 pg (27.0-32.0); MCHC 31.9 g/dL (32.0-37.0); MCV 97.9 fL (80.0-97.0); Mean Platelet Volume 10.5 fL (9.5-12.2); Monocytes # (A) 0.62 X 10*3/uL (0.20-1.00); Monocytes % (A) 7.1 %; NRBC Per 100 WBC 0 /100 WBCS (0.0-0.0); Neutrophils # (A) 4.54 X 10*3/uL (1.80-7.70); Neutrophils % (A) 52.3 %; Platelet Count 300 X 10*3/uL (140-440); RBC 4.68 X 10*6/uL (4.10-5.20); WBC 8.69 X 10*3/uL (4.50-10.00)
[2021-08-27 16:27] LABS: ALT 26 U/L (8-44); AST 22 U/L (13-35); African American GFR (CKD) 78.9 (60.0-200.0); Albumin 4.1 g/dL (3.8-4.9); Albumin/Globulin Ratio 1.58 (1.60-3.17); Alkaline Phosphatase 83 U/L (41-126); Blood Urea Nitrogen 14.4 mg/dL (9.0-27.0); Calcium 9.4 mg/dL (8.7-10.3); Carbon Dioxide 27.8 mmol/L (20.0-27.5); Chloride 107 mmol/L (96-109); Chol/HDL Ratio 2.73 Ratio; Creatine Kinase 50 U/L (26-186); Globulin 2.6 g/dL (1.6-3.3); Glucose 87 mg/dL (70-110); LDL Cholesterol,Calculated 79.1 mg/dL (0.0-131.0); Potassium 4.9 mmol/L (3.5-5.5); Sodium 144 mmol/L (135-145); Total Protein 6.7 g/dL (6.2-8.2)
== END | disposition home or self-care (01) ==
LOC: LABWHC1 08:56
PROVIDERS: ATTEND Nurse Practitioner Adult Health
DX: E78.5 Hyperlipidemia, unspecified (principal); Z68.27 Body mass index [BMI] 27.0-27.9, adult; K50.00 Crohn's disease of small intestine without complications
CPT/HCPCS: 36415; 80053; 80061; 82550; 83525; 84439; 84443; 85025

== ENCOUNTER → 2021-10-04 | Outpatient (CLI) | payer BC ==
--- NOTE | 2021-10-05 13:09 | MM ---
Reason for Exam: Screening (asymptomatic). Last mammogram was performed 1 year(s) and 5 month(s) ago. Patient History: Menarche at age 15. First Full-Term at age 21. Hysterectomy at age 44. Postmenopausal. Breast cancer, left, age 60. Estrogen, starting at age 54 for 1 year, 1 month. 09/22/2015, Malignant Core Biopsy on the left side. 09/02/2015, High risk Core Biopsy on the left side. 2015, Radiation Therapy on the left side. Mother had breast cancer, age 58. Prior Study Comparison: 01/24/2019 Bilateral Diagnostic Mammogram, [facility]. 05/07/2020 Bilateral Diagnostic Mammogram, [facility]. 11/09/2020 Right Diagnostic Mammogram, [facility]. Tissue Density: The breast tissue is heterogeneously dense. This may lower the sensitivity of mammography. Findings: Analyzed By CAD. There is stable small nodularity in the left breast outer aspect. There is no suspicious group of microcalcifications or new suspicious mass in either breast. Overall Assessment: Benign, BI-RAD 2 Management: Screening Mammogram of both breasts in 1 year. A clinical breast exam by your physician is recommended on an annual basis and results should be correlated with mammographic findings. Electronically signed and approved by: Kev Wild M.D.
== END | disposition home or self-care (01) ==
LOC: RADMAMWWP 07:01
PROVIDERS: ATTEND Family Medicine
DX: Z12.31 Encounter for screening mammogram for malignant neoplasm of breast (principal); Z78.0 Asymptomatic menopausal state; Z80.3 Family history of malignant neoplasm of breast
CPT/HCPCS: 77063; 77067

== ENCOUNTER → 2022-03-31 | Outpatient (CLI) | payer BC ==
[2022-03-31 10:51] LABS: Basophils # (A) 0.01 X 10*3/uL (0.00-0.10); Basophils % (A) 0.1 %; Eosinophils % (A) 2.2 %; HCT 45.8 % (37.2-46.3); HGB 14.7 g/dL (12.0-15.0); Immature Grans, Automated 0.1 %; Lymphocytes # (A) 3.81 X 10*3/uL (0.90-5.00); Lymphocytes % (A) 41.5 %; MCH 30.9 pg (27.0-32.0); MCHC 32.1 g/dL (32.0-37.0); MCV 96.2 fL (80.0-97.0); Mean Platelet Volume 10.8 fL (9.5-12.2); Monocytes % (A) 6.5 %; NRBC Per 100 WBC 0 /100 WBCS (0.0-0.0); Neutrophils # (A) 4.54 X 10*3/uL (1.80-7.70); Neutrophils % (A) 49.6 %; Platelet Count 317 X 10*3/uL (140-440); RBC 4.76 X 10*6/uL (4.10-5.20); RDW 13.9 % (11.5-14.5); WBC 9.17 X 10*3/uL (4.50-10.00)
[2022-03-31 10:56] LABS: ALT 24 U/L (8-44); AST 22 U/L (13-35); African American GFR (CKD) 78.3 (60.0-200.0); Albumin 4.1 g/dL (3.8-4.9); Albumin/Globulin Ratio 1.71 (1.60-3.17); Alkaline Phosphatase 78 U/L (41-126); BUN/Creat Ratio 19.11 Ratio (12.00-20.00); Blood Urea Nitrogen 17.2 mg/dL (9.0-27.0); Calcium 9.3 mg/dL (8.7-10.3); Carbon Dioxide 27.4 mmol/L (20.0-27.5); Chloride 105 mmol/L (96-109); Chol/HDL Ratio 2.65 Ratio; Globulin 2.4 g/dL (1.6-3.3); Glucose 90 mg/dL (70-110); LDL Cholesterol,Calculated 81.8 mg/dL (0.0-131.0); Non-African American GFR(CKD) 67.6 (60.0-200.0); Potassium 4.8 mmol/L (3.5-5.5); Sodium 142 mmol/L (135-145); Total Protein 6.5 g/dL (6.2-8.2)
== END | disposition home or self-care (01) ==
LOC: LABWHC1 07:13
PROVIDERS: ATTEND Internal Medicine Gastroenterology
DX: K50.00 Crohn's disease of small intestine without complications (principal); E78.5 Hyperlipidemia, unspecified
CPT/HCPCS: 36415; 80053; 80061; 85025

== ENCOUNTER → 2022-05-05 | Outpatient (CLI) | payer BC ==
[2022-05-05 10:20] LABS: Basophils # (A) 0.1 k/uL (0-0.2); Basophils % (A) 1 %; Eosinophils # (A) 0.3 k/uL (0-0.7); Eosinophils % (A) 2 %; HCT 48.1 % (34.0-46.0); HGB 15.5 gm/dL (11.4-16.0); Lymphocytes # (A) 4.9 k/uL (1.0-4.8); Lymphocytes % (A) 43 %; MCH 31.1 pg (25.0-35.0); MCHC 32.2 g/dL (31.0-37.0); MCV 96.6 fL (80.0-100.0); Monocytes # (A) 0.5 k/uL (0-1.0); Monocytes % (A) 4 %; Neutrophils # (A) 5.4 k/uL (1.3-7.7); Neutrophils % (A) 48 %; Platelet Count 386 k/uL (150-450); RBC 4.98 m/uL (3.80-5.40); RDW 13.7 % (11.5-15.5); WBC 11.4 k/uL (3.8-10.6)
[2022-05-05 10:23] LABS: ALT 51 U/L (4-34); AST 31 U/L (14-36); African American GFR (CKD) 79 (>60 ml/min/1.73 sqM); Albumin 4.3 g/dL (3.5-5.0); Albumin/Globulin Ratio 1.4; Alkaline Phosphatase 70 U/L (38-126); Anion Gap 3 mmol/L; Blood Urea Nitrogen 16 mg/dL (7-17); Calcium 9.5 mg/dL (8.4-10.2); Carbon Dioxide 32 mmol/L (22-30); Chloride 104 mmol/L (98-107); Glucose 77 mg/dL (74-99); Non-African American GFR(CKD) 69 (>60 ml/min/1.73 sqM); Potassium 4.6 mmol/L (3.5-5.1); Sodium 139 mmol/L (137-145); Total Bilirubin 0.5 mg/dL (0.2-1.3); Total Protein 7.3 g/dL (6.3-8.2)
[2022-05-05 10:45] LABS: Creatine Kinase MB <0.2 ng/mL (0.0-2.4); Troponin I <0.012 ng/mL (0.000-0.034)
== END | disposition home or self-care (01) ==
LOC: LABWHC1 09:33
PROVIDERS: ATTEND Nurse Practitioner Adult Health
DX: R06.00 Dyspnea, unspecified (principal)
CPT/HCPCS: 36415; 80053; 82553; 83880; 84484; 85025; 85379

== ENCOUNTER → 2022-10-11 | Outpatient (CLI) | payer BC ==
[2022-10-11 10:00] LABS: ALT 26 U/L (4-34); AST 30 U/L (14-36); African American GFR (CKD) >90 (>60 ml/min/1.73 sqM); Albumin 4.3 g/dL (3.5-5.0); Albumin/Globulin Ratio 1.4; Alkaline Phosphatase 67 U/L (38-126); Anion Gap 7 mmol/L; Blood Urea Nitrogen 15 mg/dL (7-17); Calcium 9.4 mg/dL (8.4-10.2); Carbon Dioxide 27 mmol/L (22-30); Chloride 106 mmol/L (98-107); Glucose 86 mg/dL (74-99); Non-African American GFR(CKD) 81 (>60 ml/min/1.73 sqM); Potassium 5.3 mmol/L (3.5-5.1); Sodium 140 mmol/L (137-145); Total Bilirubin 0.5 mg/dL (0.2-1.3); Total Protein 7.3 g/dL (6.3-8.2)
[2022-10-11 10:39] LABS: Basophils % (A) 0 %; Eosinophils # (A) 0.1 k/uL (0-0.7); Eosinophils % (A) 1 %; HCT 45.8 % (34.0-46.0); HGB 14.6 gm/dL (11.4-16.0); Lymphocytes # (A) 3.9 k/uL (1.0-4.8); Lymphocytes % (A) 39 %; MCHC 31.9 g/dL (31.0-37.0); MCV 97.1 fL (80.0-100.0); Mean Platelet Volume 9.7; Monocytes # (A) 0.5 k/uL (0-1.0); Monocytes % (A) 5 %; Neutrophils # (A) 5.3 k/uL (1.3-7.7); Neutrophils % (A) 53 %; Platelet Count 301 k/uL (150-450); RBC 4.71 m/uL (3.80-5.40)
== END | disposition home or self-care (01) ==
LOC: LABWHC1 08:15
PROVIDERS: ATTEND Internal Medicine Gastroenterology
DX: K50.00 Crohn's disease of small intestine without complications (principal)
CPT/HCPCS: 36415; 80053; 85025

== ENCOUNTER → 2022-10-11 | Outpatient (CLI) | payer BC ==
--- NOTE | 2022-10-12 20:18 | MM ---
Reason for Exam: Screening (asymptomatic). Last screening mammogram was performed 12 month(s) ago. Patient History: Menarche at age 15. First Full-Term at age 21. Hysterectomy at age 44. Postmenopausal. Breast cancer, left, age 60. Previous chest radiation therapy at age 60. Estrogen, starting at age 54 for 1 year, 1 month. 09/22/2015, Malignant Core Biopsy on the left side. 09/02/2015, High risk Core Biopsy on the left side. 2015, Radiation Therapy on the left side. Mother had breast cancer, age 58. Prior Study Comparison: 05/07/2020 Bilateral Diagnostic Mammogram, [facility]. 11/09/2020 Right Diagnostic Mammogram, [facility]. 10/04/2021 Bilateral MG 3D screening mammo w/cad, [facility]. Tissue Density: The breast tissue is heterogeneously dense. This may lower the sensitivity of mammography. Findings: Analyzed By CAD. Chronic nodularity lateral left breast. There is no suspicious group of microcalcifications or new suspicious mass in either breast. Overall Assessment: Benign, BI-RAD 2 Management: Screening Mammogram of both breasts in 1 year. Patient should continue monthly self-breast exams. A clinical breast exam by your physician is recommended on an annual basis. This exam should not preclude additional follow-up of suspicious palpable abnormalities. Electronically signed and approved by: Dario Macias M.D. Radiologist
== END | disposition home or self-care (01) ==
LOC: RADMAMWWP 07:49
PROVIDERS: ATTEND Family Medicine
DX: Z12.31 Encounter for screening mammogram for malignant neoplasm of breast (principal); Z78.0 Asymptomatic menopausal state; Z80.3 Family history of malignant neoplasm of breast
CPT/HCPCS: 77063; 77067

== ENCOUNTER → 2022-10-13 | Outpatient (CLI) | payer BC ==
[2022-10-13 16:10] LABS: BUN/Creat Ratio 11.56 Ratio (12.00-20.00); Blood Urea Nitrogen 10.4 mg/dL (9.0-27.0); Calcium 9.4 mg/dL (8.7-10.3); Carbon Dioxide 23.9 mmol/L (21.6-31.8); Chloride 102 mmol/L (96-109); Glucose 80 mg/dL (70-110); Potassium 4.5 mmol/L (3.5-5.5); Sodium 139 mmol/L (135-145)
== END | disposition home or self-care (01) ==
LOC: LABWHC1 07:58
PROVIDERS: ATTEND Internal Medicine Gastroenterology
DX: E87.5 Hyperkalemia (principal)
CPT/HCPCS: 36415; 80048

== ENCOUNTER → 2023-04-06 | Outpatient (CLI) | payer BC ==
[2023-04-06 10:49] LABS: HCT 45.6 % (37.2-46.3); HGB 14.9 g/dL (12.0-15.0); MCH 31.5 pg (27.0-32.0); MCV 96.4 FL (80.0-97.0); RBC 4.73 X 10*6/uL (4.10-5.20); WBC 11.58 X 10*3/uL (4.50-10.00)
[2023-04-06 10:50] LABS: Basophils # (A) 0.02 X 10*3/uL (0.00-0.10); Basophils % (A) 0.2 %; Eosinophils # (A) 0.19 X 10*3/uL (0.04-0.35); Eosinophils % (A) 1.6 %; Lymphocytes # (A) 3.39 X 10*3/uL (0.90-5.00); Lymphocytes % (A) 29.3 %; MCHC 32.7 g/dL (32.0-37.0); Mean Platelet Volume 10.9 FL (9.5-12.2); Monocytes % (A) 6.9 %; NRBC Per 100 WBC 0 X 10*3/uL (0.00-0.01); Neutrophils # (A) 7.15 X 10*3/uL (1.80-7.70); Neutrophils % (A) 61.7 %; Platelet Count 304 X 10*3/uL (140-440); RDW 13.3 % (11.5-14.5)
[2023-04-06 11:41] LABS: % Iron Saturation 30.42 (12.00-45.00); ALT 29 U/L (8-44); AST 25 U/L (13-35); Albumin 4.3 g/dL (3.8-4.9); Albumin/Globulin Ratio 1.43 Ratio (1.60-3.17); Alkaline Phosphatase 104 U/L (41-126); BUN/Creat Ratio 23.89 Ratio (12.00-20.00); Blood Urea Nitrogen 21.5 mg/dL (9.0-27.0); Carbon Dioxide 23.8 mmol/L (21.6-31.8); Chloride 105 mmol/L (96-109); Creatine Kinase 67 U/L (26-186); Glucose 80 mg/dL (70-110); Iron 101 UG/DL (50-170); LDL Cholesterol,Calculated 90.9 mg/dL (0.0-131.0); Potassium 4.4 mmol/L (3.5-5.5); Sodium 142 mmol/L (135-145); T4, Free (Free Thyroxine) 1.19 ng/dL (0.80-1.80); Total Bilirubin 0.3 mg/dL (0.3-1.2); Total Iron Binding Capacity 332 UG/DL (228-460); Total Protein 7.3 g/dL (6.2-8.2)
== END | disposition home or self-care (01) ==
LOC: LABWHC1 07:12
PROVIDERS: ATTEND Nurse Practitioner Adult Health
DX: F41.8 Other specified anxiety disorders (principal); K50.00 Crohn's disease of small intestine without complications; E78.5 Hyperlipidemia, unspecified
CPT/HCPCS: 36415; 80053; 80061; 82550; 82607; 82728; 82746; 83036; 83540; 83550; 84439; 84443; 85025

== ENCOUNTER 2023-06-12 08:48 | Day surgery (SDC) | payer BC ==
[2023-06-12 09:32] LABS: Glucose,Whole Blood 97 mg/dL (70-110)
[2023-06-12] MEDS ORDERED: PROPOFOL 10 MG/ML 20 ML VIAL IV ONE (09:38)
[2023-06-12] MEDS: LACTATED RINGERS 1,000 ML IV ONE ×2 (09:41→09:42)
[2023-06-12 09:53] VITALS: RESP 16; TEMP 97.2
--- NOTE | 2023-06-12 09:55 | P.PCN ---
Date of Procedure: 06/12/23 Procedure(s) Performed: BRIEF HISTORY: Patient is a 67-year-old pleasant white female scheduled for an elective colonoscopy as a part of this surveillance of long-standing history of Crohn's colitis that was diagnosed in 1992. She is presently admitted on Humira injections every 2 weeks and doing well. PROCEDURE PERFORMED: Colonoscopy With biopsy PREOPERATIVE DIAGNOSIS: Long-standing history of Crohn's ileocolitis diagnosed in 1992. IV sedation per Anesthesia. PROCEDURE: After informed consent was obtained, the patient, was brought into the endoscopy unit. IV sedation was administered by Anesthesia under continuous monitoring. Digital rectal examination was normal. Initially the Olympus CF-160 flexible video colonoscope was then inserted in the rectum, gradually advanced into the cecum without any difficulty. Careful examination was performed as the scope was gradually being withdrawn. Ileocecal valve and the appendiceal orifice were visualized and appeared normal. Prep was fair. Terminal ileum was intubated and 20 cm visualized and appeared normal. Mucosa of the cecum, ascending colon, transverse colon, descending colon, sigmoid colon, and rectum appeared normal. Scattered sigmoid diverticula seen. Random biopsies were done from cecum to rectum at every 10 cm intervals. Retroflexion was performed in the rectum and no lesions were seen. The patient tolerated the procedure well. IMPRESSION: Normal-appearing colon from rectum to cecum no emesis of active colitis or c olorectal neoplasia Scattered sigmoid diverticulosis. RECOMMENDATIONS: Findings of this examination were discussed with the patient as well as a family. She was advised to follow with the biopsy results. If the biopsy does not show any evidence of dysplasia, she can have a repeat colonoscopy in 2 years..
[2023-06-12 10:29] VITALS: BP 118/67; PULSE 92
[2023-06-12 10:45] LABS: Glucose,Whole Blood 101 mg/dL (70-110)
== END 2023-06-12 10:48 | disposition home or self-care (01) ==
LOC: ORWHC2ENDO 08:48
PROVIDERS: ATTEND Internal Medicine Gastroenterology
DX: K50.80 Crohn's disease of both small and large intestine without complications (principal); K57.30 Diverticulosis of large intestine without perforation or abscess without bleeding; F17.200 Nicotine dependence, unspecified, uncomplicated; F32.A Depression, unspecified; K21.9 Gastro-esophageal reflux disease without esophagitis; Z88.0 Allergy status to penicillin; Z79.899 Other long term (current) drug therapy
CPT/HCPCS: 88305; 45380; J2704

== ENCOUNTER → 2023-09-22 | Outpatient (CLI) | payer BC ==
--- NOTE | 2023-09-22 10:04 | CT ---
EXAMINATION TYPE: CT chest wo con DATE OF EXAM: 09/22/2023 COMPARISON: None HISTORY: progressive cough. some dyspnea. no history CT DLP: 271.1 mGycm. Automated Exposure Control for Dose Reduction was Utilized. TECHNIQUE: CT scan of the thorax is performed without IV contrast. FINDINGS: There are mild emphysematous changes with an upper lobe predominance. There are scattered sub-4 mm pulmonary nodules. There is no airspace/consolidated density or abnormal interstitial density. There is no pleural effusion, pleural thickening or pneumothorax. The great vessels of the chest is normal and is no mediastinal, hilar or axillary adenopathy. There is severe abnormal kyphosis of the lower thoracic spine secondary to fusion of 3 lower thoracic vertebral segments. No focal osseous destructive lesions are seen. IMPRESSION: 1. Mild emphysematous changes. 2. Scattered sub-4 mm pulmonary nodules, likely benign. 3. No acute cardiopulmonary disease. 4. Abnormality of the lower thoracic spine as described
== END | disposition home or self-care (01) ==
LOC: RADCTMAIN 07:56
PROVIDERS: ATTEND Family Medicine
DX: R91.8 Other nonspecific abnormal finding of lung field (principal); J43.9 Emphysema, unspecified; R06.00 Dyspnea, unspecified
CPT/HCPCS: 71250

== ENCOUNTER → 2023-11-21 | Outpatient (CLI) | payer BC ==
[2023-11-21 15:15] LABS: Basophils # (A) 0.02 X 10*3/uL (0.00-0.10); Basophils % (A) 0.2 %; Eosinophils # (A) 0.15 X 10*3/uL (0.04-0.35); Eosinophils % (A) 1.5 %; HCT 45.6 % (37.2-46.3); HGB 14.7 g/dL (12.0-15.0); Lymphocytes # (A) 4.25 X 10*3/uL (0.90-5.00); Lymphocytes % (A) 42.1 %; MCH 32.3 pg (27.0-32.0); MCHC 32.2 g/dL (32.0-37.0); MCV 100.2 FL (80.0-97.0); Mean Platelet Volume 11.5 FL (9.5-12.2); Monocytes # (A) 0.81 X 10*3/uL (0.20-1.00); NRBC Per 100 WBC 0 X 10*3/uL (0.00-0.01); Neutrophils # (A) 4.84 X 10*3/uL (1.80-7.70); Platelet Count 308 X 10*3/uL (140-440); RBC 4.55 X 10*6/uL (4.10-5.20); RDW 13.5 % (11.5-14.5); WBC 10.09 X 10*3/uL (4.50-10.00)
[2023-11-21 15:16] LABS: ALT 29 U/L (8-44); AST 27 U/L (13-35); Albumin 4.5 g/dL (3.8-4.9); Albumin/Globulin Ratio 1.67 Ratio (1.60-3.17); Alkaline Phosphatase 80 U/L (41-126); Calcium 9.3 mg/dL (8.7-10.3); Carbon Dioxide 24.1 mmol/L (21.6-31.8); Chloride 103 mmol/L (96-109); Globulin 2.7 g/dL (1.6-3.3); Glucose 85 mg/dL (70-110); Potassium 4.3 mmol/L (3.5-5.5); Sodium 138 mmol/L (135-145); Total Bilirubin 0.3 mg/dL (0.3-1.2); Total Protein 7.2 g/dL (6.2-8.2)
== END | disposition home or self-care (01) ==
LOC: LABWHC1 08:08
PROVIDERS: ATTEND Internal Medicine Gastroenterology
DX: K50.00 Crohn's disease of small intestine without complications (principal)
CPT/HCPCS: 36415; 80053; 85025

== ENCOUNTER → 2024-01-29 | Outpatient (CLI) | payer BC ==
--- NOTE | 2024-01-30 18:24 | MM ---
Reason for Exam: Hx of breast cancer, conservation therapy. Last mammogram was performed 1 year(s) and 4 month(s) ago. Patient History: Menarche at age 15. First Full-Term at age 21. Hysterectomy at age 44. Postmenopausal. Breast cancer, left, age 60. Previous chest radiation therapy at age 60. Estrogen, starting at age 54 for 1 year, 1 month. 09/22/2015, Malignant Core Biopsy on the left side. 09/02/2015, High risk Core Biopsy on the left side. 2016, Radiation Therapy on the left side. Mother had breast cancer, age 58. Prior Study Comparison: 11/09/2020 Right Diagnostic Mammogram, [facility]. 10/04/2021 Bilateral MG 3D screening mammo w/cad, [facility]. 10/11/2022 Bilateral MG 3D screening mammo w/cad, [facility]. Tissue Density: There are scattered areas of fibroglandular density. Findings: Analyzed By CAD. Asymmetric density superior anterior left MLO view does not persist on 3-D images. Postsurgical and posttreatment changes left breast. There is no suspicious group of microcalcifications or new suspicious mass in either breast. Overall Assessment: Benign, BI-RAD 2 Management: Screening Mammogram of both breasts in 1 year. . Patient should continue monthly self-breast exams. A clinical breast exam by your physician is recommended on an annual basis. This exam should not preclude additional follow-up of suspicious palpable abnormalities. [facility], , 01/30/2024 6:21 PM. Electronically signed and approved by: Dario Macias M.D. Radiologist
== END | disposition home or self-care (01) ==
LOC: RADMAMWWP 07:18
PROVIDERS: ATTEND Family Medicine
DX: Z12.31 Encounter for screening mammogram for malignant neoplasm of breast
CPT/HCPCS: 77063; 77067

== ENCOUNTER → 2024-04-18 | Outpatient (CLI) | payer BC ==
[2024-04-18 15:23] LABS: Basophils # (A) 0.01 X 10*3/uL (0.00-0.10); Basophils % (A) 0.1 %; Eosinophils # (A) 0.19 X 10*3/uL (0.04-0.35); Eosinophils % (A) 1.9 %; Lymphocytes # (A) 4.01 X 10*3/uL (0.90-5.00); Lymphocytes % (A) 39.7 %; MCH 31.4 pg (27.0-32.0); MCHC 31.9 g/dL (32.0-37.0); MCV 98.5 FL (80.0-97.0); Mean Platelet Volume 11.8 FL (9.5-12.2); Monocytes # (A) 0.75 X 10*3/uL (0.20-1.00); Monocytes % (A) 7.4 %; NRBC Per 100 WBC 0 X 10*3/uL (0.00-0.01); Neutrophils % (A) 50.6 %; Platelet Count 272 X 10*3/uL (140-440); RBC 4.77 X 10*6/uL (4.10-5.20); RDW 13.8 % (11.5-14.5); WBC 10.09 X 10*3/uL (4.50-10.00)
[2024-04-18 15:44] LABS: Chol/HDL Ratio 3.39 Ratio; Creatine Kinase 69 U/L (26-186); LDL Cholesterol,Calculated 75.4 mg/dL (0.0-131.0)
[2024-04-18 15:46] LABS: ALT 17 U/L (8-44); AST 29 U/L (13-35); Albumin/Globulin Ratio 1.48 Ratio (1.60-3.17); Alkaline Phosphatase 78 U/L (41-126); Blood Urea Nitrogen 12.9 mg/dL (9.0-27.0); Calcium 9.3 mg/dL (8.7-10.3); Carbon Dioxide 25.3 mmol/L (21.6-31.8); Chloride 108 mmol/L (96-109); Globulin 2.7 g/dL (1.6-3.3); Glucose 91 mg/dL (70-110); Potassium 5.2 mmol/L (3.5-5.5); Sodium 144 mmol/L (135-145); Total Bilirubin <0.2 mg/dL (0.3-1.2); Total Protein 6.7 g/dL (6.2-8.2)
== END | disposition home or self-care (01) ==
LOC: LABWHC1 09:07
PROVIDERS: ATTEND Family Medicine
DX: E78.5 Hyperlipidemia, unspecified (principal)
CPT/HCPCS: 36415; 80053; 80061; 82550; 83036; 85025

== ENCOUNTER → 2024-11-06 | Outpatient (CLI) | payer MEDICARE ==
[2024-11-06 15:08] LABS: Basophils # (A) 0.02 X 10*3/uL (0.00-0.10); Basophils % (A) 0.2 %; Eosinophils # (A) 0.15 X 10*3/uL (0.04-0.35); Eosinophils % (A) 1.4 %; HCT 47.7 % (37.2-46.3); HGB 15.7 g/dL (12.0-15.0); Immature Grans, Automated 0.40 %; Lymphocytes # (A) 4.15 X 10*3/uL (0.90-5.00); Lymphocytes % (A) 38.5 %; MCH 32.2 pg (27.0-32.0); MCHC 32.9 g/dL (32.0-37.0); MCV 97.7 FL (80.0-97.0); Monocytes # (A) 0.68 X 10*3/uL (0.20-1.00); Monocytes % (A) 6.3 %; NRBC Per 100 WBC 0 X 10*3/uL (0.00-0.01); Neutrophils # (A) 5.75 X 10*3/uL (1.80-7.70); Neutrophils % (A) 53.2 %; Platelet Count 322 X 10*3/uL (140-440); RBC 4.88 X 10*6/uL (4.10-5.20); RDW 13.7 % (11.5-14.5); WBC 10.79 X 10*3/uL (4.50-10.00)
[2024-11-06 15:31] LABS: BUN/Creat Ratio 12.89 Ratio (12.00-20.00); Blood Urea Nitrogen 11.6 mg/dL (9.0-27.0); Cholesterol 184.00 mg/dL (0.00-200.00); Creatine Kinase 60 U/L (26-186); Glucose 100 mg/dL (70-110); HDL Cholesterol 50.60 mg/dL (40.00-60.00); LDL Cholesterol,Calculated 97.2 mg/dL (0.0-131.0); Triglycerides 181.00 mg/dL (0.00-149.00); VLDL Calculation 36.20 mg/dL (5.00-40.00)
[2024-11-06 15:32] LABS: ALT 24 U/L (8-44); AST 27 U/L (13-35); Albumin 4.6 g/dL (3.8-4.9); Albumin/Globulin Ratio 1.84 Ratio (1.60-3.17); Alkaline Phosphatase 87 U/L (41-126); Anion Gap 11.20 mmol/L (4.00-12.00); Calcium 9.7 mg/dL (8.7-10.3); Carbon Dioxide 26.8 mmol/L (21.6-31.8); Chloride 107 mmol/L (96-109); Globulin 2.5 g/dL (1.6-3.3); Potassium 4.9 mmol/L (3.5-5.5); Sodium 145 mmol/L (135-145); T4, Free (Free Thyroxine) 0.93 ng/dL (0.80-1.80); Total Protein 7.1 g/dL (6.2-8.2)
== END | disposition home or self-care (01) ==
LOC: LABWHC1 08:22
PROVIDERS: ATTEND Nurse Practitioner Adult Health
DX: E78.5 Hyperlipidemia, unspecified (principal); F41.8 Other specified anxiety disorders; L60.9 Nail disorder, unspecified; K50.00 Crohn's disease of small intestine without complications
CPT/HCPCS: 36415; 80053; 80061; 82550; 83036; 84439; 84443; 84630; 85025